=== PATIENT | female | born 1965 | race Caucasian/White ===

== ENCOUNTER 2023-01-02 09:55 | Outpatient (CLI) | payer OTHER, SELFPAY ==
--- NOTE | 2023-01-02 10:13 | MM_ITS ---
WS: [id number] VIEWS: MLO and CC views both breasts. 3D digital tomosynthesis is also included in this exam. No previous exams. Findings: There was no sign of mass, architectural distortion or suspicious calcification in either breast. Pro bable small intramammary lymph node in the upper outer quadrant of the LEFT breast. There are scatter ed areas of fibroglandular density Impression: MM/[place] [id number] BI-RADS: 2-Benign FOLLOW-UP: 1 Year Follow-up This mammogram was also analyzed by the Computer Aided Detection System [employer]2 [employer].
== END 2023-01-02 09:56 | disposition home or self-care (01) ==
LOC: RAD 10:01
PROVIDERS: PCP Nurse Practitioner Family; Visit Provider Nurse Practitioner Family
DX: Z12.31 Encounter for screening mammogram for malignant neoplasm of breast (principal)
CPT/HCPCS: 77063; 77067